=== PATIENT | male | born 1960 ===

== ENCOUNTER 2021-05-13 15:43 | Emergency (ER) | payer BC, MEDICARE ==
[2021-05-13 16:04] VITALS: BP 133/76
--- NOTE | 2021-05-13 17:21 | XRay Report ---
CHEST 1 VIEW INDICATION: R/O TB. COMPARISON: 11/25/2020 FINDINGS: SUPPORT DEVICES: None. HEART: Stable borderline cardiomegaly. LUNGS/PLEURA: No acute air space or interstitial disease. ADDITIONAL FINDINGS: None. IMPRESSION: 1. No acute findings. No evidence of active TB. Signer Name: Breezy Aldridge MD Signed: 05/13/2021 5:17 PM Workstation Name: [id number]
--- NOTE | 2021-05-13 17:46 | Emergency Department Report ---
ED General Adult HPI - General Chief complaint: Medical Clearance Stated complaint: TB, NEED CHEST XRAY Time Seen by Provider: 05/13/21 16:52 Source: patient Mode of arrival: Ambulatory Limitations: No Limitations - History of Present Illness Initial comments: Patient is a 60-year-old F [place] male who lives in the assisted living facility who is presenting status post a positive PPD. Patient is asymptomatic. Is done routinely. Patient has had no night sweats or bloody sputum. Severity scale (0 -10): 0 - Related Data Allergies Allergy/AdvReac Type Severity Reaction Status Date / Time No Known Allergies Allergy Unverified 05/13/21 16:10 ED Review of Systems ROS: Stated complaint: TB, NEED CHEST XRAY Other details as noted in HPI Comment: All other systems reviewed and negative ED Past Medical Hx - Surgical History Past Surgical History?: No ED Physical Exam - General Limitations: No Limitations, Other (Patient uncooperative during most of the physical exam) General appearance: alert, in no apparent distress - Head Head exam: Present: atraumatic, normocephalic - Eye Eye exam: Present: normal appearance - ENT ENT exam: Present: mucous membranes moist - Neck Neck exam: Present: normal inspection - Respiratory Respiratory exam: Absent: respiratory distress - Rectal Rectal exam: Present: deferred - Extremities Exam Extremities exam: Present: normal inspection - Back Exam Back exam: Present: normal inspection - Neurological Exam Neurological exam: Present: alert, oriented X3 - Psychiatric Psychiatric exam: Present: normal affect, normal mood - Skin Skin exam: Present: warm, dry, intact, normal color. Absent: rash ED Course Vital Signs 05/13/21 05/13/21 16:01 16:51 Temperature 98.5 F Pulse Rate 75 Respiratory 18 Rate Blood Pressure 133/76 [Right] O2 Sat by Pulse 98 97 Oximetry ED Medical Decision Making - Radiology Data CHEST 1 VIEW INDICATION: R/O TB. COMPARISON: 11/25/2020 FINDINGS: SUPPORT DEVICES: None. HEART: Stable borderline cardiomegaly. LUNGS/PLEURA: No acute air space or interstitial disease. ADDITIONAL FINDINGS: None. IMPRESSION: 1. No acute findings. No evidence of active TB. Signer Name: Breezy Aldridge MD Signed: 05/13/2021 5:17 PM Workstation Name: [email or web address] - Medical Decision Making Patient is chest x-ray is negative. Does not appear that the patient has any active tuberculosis at this time. Patient can follow-up with his primary care for further treatment Critical care attestation.: If time is entered above; I have spent that time in minutes in the direct care of this critically ill patient, excluding procedure time. ED Disposition Clinical Impression: PPD positive Disposition: 01 HOME / SELF CARE / HOMELESS Is pt being admited?: No Does the pt Need Aspirin: No Condition: Stable Additional Instructions: No active tuberculosis was found. Patient will need to follow-up with primary care to be started on medications for the next several months that is an active tuberculosis does not convert to active Referrals: PRIMARY CARE, [Primary Care Provider] - 3-5 Days Time of Disposition: 17:45
== END 2021-05-13 18:01 | disposition home or self-care (01) ==
LOC: ED 15:43
DX: R76.11 Nonspecific reaction to tuberculin skin test without active tuberculosis (principal)
CPT/HCPCS: 71045; 99284